=== PATIENT | female | born 1960 | race African-American/Black ===

== ENCOUNTER 2019-06-29 12:54 | Emergency (ER) | payer OTHER ==
[~2019-06-29] VITALS: Ht 162.6 cm; Wt 64.4 kg
[~2019-06-29 12:54] MED LIST: ACCUPRIL PO; DARVOCET-N 1001 EACH PO; FLEXERIL PO; HYDROCODONE-AC120 ML PO; LIBRIUM10 MG PO; LYRICA100 MG PO; MEDROLDOSEPACK PO; NAPROSYN500 MG PO; NORCO 5-325 TA1 EACH PO; PERCOCET 5-3251 EACH PO; PHENERGAN 25 MG25 M1 PO; PHENERGAN50 MG RC; PRAVASTATIN SOD10 MG PO; ROBAXIN500 MG PO; TRAMADOL 50 MG50 MG PO; VALIUM5 MG PO; ZANTAC 150MG T150 MG PO; ZOFRAN 4 MG ORAL4 MG PO
[2019-06-29] MEDS ORDERED: NABUMETONE 750750 M1 PO (14:18)
[2019-06-29 14:30] VITALS: BP 132/87
== END 2019-06-29 14:30 | disposition home or self-care (01) ==
LOC: ER 12:54
DX: N64.4 Mastodynia (principal); R07.89 Other chest pain; T85.898A Other specified complication of other internal prosthetic devices, implants and grafts, initial encounter; I10 Essential (primary) hypertension; G89.29 Other chronic pain; F17.210 Nicotine dependence, cigarettes, uncomplicated; Z88.1 Allergy status to other antibiotic agents; Z88.8 Allergy status to other drugs, medicaments and biological substances

== ENCOUNTER 2020-10-15 20:12 | Emergency (ER) | payer OTHER ==
[~2020-10-15] VITALS: Ht 167.6 cm; Wt 65.8 kg
[~2020-10-15 20:12] MED LIST changes: +NABUMETONE 750750 M1 PO
[2020-10-15 20:43] LABS: URINE BILIRUBIN NEGATIVE (Negative); URINE BLOOD TRACE (Negative); URINE CLARITY CLEAR; URINE COLOR YELLOW; URINE GLUCOSE-RANDOM* NEGATIVE (Negative); URINE KETONES NEGATIVE (Negative); URINE NITRITE-REFLEX NEGATIVE (Negative); URINE PROTEIN (DIPSTICK) NEGATIVE (Negative); URINE SPECIFIC GRAVITY <= 1.005 (1.005-1.035); URINE UROBILINOGEN 0.2 E.U./dl (0.2-1.0)
[2020-10-15 20:45] LABS: URINE LEUKOCYTES-REFLEX 2+ (Negative)
[2020-10-15 21:01] LABS: RENAL EPITHELIAL CELLS 0-3 Few /LPF (None Seen); SQUAMOUS 0-3 Few /LPF (0-3); URINE WBC-REFLEX 0-5 Rare /HPF (0-5)
[2020-10-15 21:02] LABS: URINE RBC 0-2 Rare /HPF (0-2); WBC CLUMPS Rare (None Seen)
[2020-10-15 21:03] LABS: BACTERIA-REFLEX 1-9 Few /HPF (None Seen); CASTS None Seen /LPF (None Seen); CRYSTALS None Seen /LPF (None Seen)
[2020-10-15 21:09] LABS: ABSOLUTE NEUTROPHILS 1.2 thou/uL (1.4-8.2); EOSINOPHILS 2.5 % (0.0-3.0); HEMATOCRIT 37.1 % (37.0-47.0); HEMOGLOBIN 12.3 gm/dL (12.0-15.0); LYMPHOCYTES 57.8 % (24.0-44.0); MCH 30.5 pg (26.0-34.0); MCV 92.5 fL (80.0-100.0); MONOCYTES 11.9 % (1.0-8.0); PLATELET COUNT 229 thou/uL (150-400); POLYS 26.8 % (36.0-66.0); RBC 4.02 mil/uL (4.20-5.00); WBC 4.6 thou/uL (4.0-11.0)
[2020-10-15 21:21] LABS: CALCIUM 8.8 mg/dL (8.5-10.1); CREATININE 0.8 mg/dL (0.6-1.0); POTASSIUM 4.1 mmol/L (3.5-5.1)
[2020-10-15 21:26] LABS: ALBUMIN 3.6 g/dL (3.4-5.0); TOTAL BILIRUBIN 0.2 mg/dL (0.2-1.0); TOTAL PROTEIN 6.8 g/dL (6.4-8.2)
[2020-10-15] MEDS ORDERED: FLAGYL500 M1 PO (22:56)
[2020-10-15] MEDS ORDERED: CIPROFLOXACIN500 M1 PO (22:56)
[2020-10-15 23:30] VITALS: BP 133/97
== END 2020-10-15 23:51 | disposition home or self-care (01) ==
LOC: ER 20:12
PROVIDERS: Emergency Medicine
DX: K52.9 Noninfective gastroenteritis and colitis, unspecified (principal); R10.31 Right lower quadrant pain; I10 Essential (primary) hypertension; G89.29 Other chronic pain; F17.210 Nicotine dependence, cigarettes, uncomplicated; Z88.1 Allergy status to other antibiotic agents; Z79.899 Other long term (current) drug therapy